=== PATIENT | male | born 1980 | race Caucasian/White ===

== ENCOUNTER → 2025-04-04 14:57 | Outpatient (REF) | payer OTHER, SELFPAY | LOC: EMG 14:57 | PROVIDERS: ATTENDING PHYSICIAN Orthopaedic Surgery; FAMILY PHYSICIAN Family Medicine | DX: R20.0 Anesthesia of skin (principal); G56.02 Carpal tunnel syndrome, left upper limb; R20.2 Paresthesia of skin | CPT/HCPCS: 95886; 95909 ==